=== PATIENT | female | born 1955 | race Caucasian/White ===

== ENCOUNTER 2019-03-03 06:45 | Day surgery (SDC) ==
--- NOTE | 2019-03-03 07:48 | Diag Imaging Result Doc PS360 ---
EXAM: LYMPHOSCINTIGRAPHY W/IMG INDICATION: Malignant neoplasm of unspecified site of right female breast TECHNIQUE: COMPARISON: None. FINDINGS: 540 uCi of technetium 99 Lymphoseek was injected subcutaneously in the quadrant of the patient's known right breast malignancy by Dr. Darci Martin for the purpose of sentinel node localization. Expected axillary aneta activity is noted. IMPRESSION: As above. Electronically signed by Sd Mixon 03/03/2019 7:46 AM
--- NOTE | 2019-03-03 07:48 | EKG Report ---
Test Performed on : 03/03/2019 07:38:38 AM Test Reason : preop Blood Pressure : / mmHG Vent. Rate : 072 BPM Atrial Rate : 072 BPM P-R Int : 160 ms QRS Dur : 084 ms QT Int : 398 ms P-R-T Axes : 061 016 049 degrees QTc Int : 435 ms Normal sinus rhythm. with sinus arrhythmia. Normal ECG No previous ECGs available Confirmed by Byron ALCANTARA, Melvin Caldera ([id number]) on 03/03/2019 1:12:54 PM
[2019-03-03 07:54] LABS: HEMATOCRIT 38.8 % (37.0-47.0); HEMOGLOBIN 12.8 g/dL (12.0-16.0); MCH 30.5 PG (27-31); MCV 92.4 FL (81-99); RBC 4.2 XMIL (4.2-5.4); WBC 7.1 X1000 (4.8-10.8)
[2019-03-03] MEDS ORDERED: PEPCID ONE (07:55)
[2019-03-03] MEDS ORDERED: KEFZOL 1 GM/D5W 1 GM/50 ML IVPB ONE (07:55)
[2019-03-03] MEDS ORDERED: REGLAN ONE (07:55)
[2019-03-03] MEDS ORDERED: LR 1,000 ML ONE (07:55)
[2019-03-03] MEDS ORDERED: VERSED ONE (08:07)
[2019-03-03] MEDS ORDERED: DIPRIVAN 1% ONE (08:08)
[2019-03-03] MEDS ORDERED: FENTANYL ONE (08:08)
[2019-03-03] MEDS ORDERED: METHYLENE BLUE 0.5% ONE (10:09)
[2019-03-03] MEDS ORDERED: SENSORCAINE 0.25%/EPI 1:200,000 ONE (10:09)
[2019-03-03] MEDS: DILAUDID ONE ×2 (12:38→12:43)
[2019-03-03] MEDS ORDERED: ZOFRAN IV PRN (13:09)
[2019-03-03] MEDS ORDERED: MORPHINE IV PRN (13:09)
[2019-03-03] MEDS: NORCO-10 PO PRN ×2 (14:46→22:11)
[2019-03-03] MEDS: LR 1,000 ML IV SCH ×2 (14:46→19:04)
--- NOTE | 2019-03-03 20:43 | OPERATIVE NOTE ---
PROCEDURE DATE: 03/03/2019 PREOPERATIVE DIAGNOSIS: Right breast carcinoma, right upper outer. POSTOPERATIVE DIAGNOSIS: Right breast carcinoma, right upper outer. PROCEDURE PERFORMED: Right mastectomy with sentinel lymph node biopsy and intraoperative mapping. SPECIMENS: 1. Right breast tissue garibay medial. 2. Holden lymph node #1. 3. Nonsentinel lymph node tissue. ESTIMATED BLOOD LOSS: 100 mL. ANESTHESIA: General. INDICATIONS: This is a 64-year-old female who has a right upper outer breast mass biopsy- confirmed invasive carcinoma who has elected to undergo a right mastectomy with sentinel node biopsy. OPERATIVE FINDINGS: There was a single sentinel node noted in the right axilla. It had an ex vivo count of over 5000 and a bed count that fell to less than 10% of this. It did stain blue with methylene blue injection. There is a right upper outer breast mass just above and lateral to the nipple areolar complex with grossly negative margins. DRAINS: Joey drain was placed in the mastectomy flap and into the axilla. OPERATIVE NOTE: Risks, benefits, and alternatives were discussed with the patient. She consented to the procedure. Seen preoperatively and surgical site was confirmed. She was injected with the technetium marker by our Nuclear Medicine colleagues. She was then taken to the operating room, placed in supine position, and general anesthesia induced. Her right neck, chest, breast, and axilla were prepped with Betadine and draped in usual fashion. After time-out an elliptical incision was made around the nipple areolar complex oriented toward the axilla from an inferior medial to cephalad lateral orientation. We entered the avascular plane of the breast, medial to the sternum, cephalad to the clavipectoral fascia, the inferior rectus, and laterally to the latissimus. Prior to doing this, we did enter the axilla under the guidance of the gamma probe, and prior to making skin incision we did inject methylene blue in the subareolar location. Upon entering the axilla, we identified a blue lymphatic and follow this to a normal-appearing right node that did have avidity noted with the gamma probe. There was quite a lot of scatter from her injection site that made the blue dye more useful. Ex vivo count was elevated consistent with a sentinel node. Bed count fell to less than 10%. There was some surrounding nonsentinel tissue that was sent separately. Frozen section was negative from metastatic malignancy. As such, we did not pursue axillary dissection. We placed a marking stitch medially. A Joey drain was placed through a separate stab incision in the dermis and after Valsalva we noted hemostasis and irrigated the wound. The dermis was closed with 3-0 Vicryl. Skin was closed with 4-0 Monocryl. Dermabond was applied. Counts correct. She will be transferred to recovery. I spoke with family. cc: Fidencio Martin MD
[2019-03-03] MEDS: PERIDEX MT SCH (22:11)
[2019-03-03 22:24] LABS: URINE SOURCE CLEAN CATCH
[2019-03-03 22:58] LABS: BILIRUBIN URINE NEGATIVE (NEGATIVE); BLOOD URINE NEGATIVE (NEGATIVE); COLOR STRAW; GLUCOSE URINE NEGATIVE (NEGATIVE); KETONE URINE NEGATIVE (NEGATIVE); LEUKOCYTES URINE NEGATIVE (NEGATIVE); NITRITE URINE NEGATIVE (NEGATIVE); PH URINE 6.5; PROTEIN URINE NEGATIVE (NEGATIVE); SP GRAVITY URINE 1.017; TURBIDITY URINE CLEAR (CLEAR); UR EPITHELIAL CELLS <10 /HPF (<10); URINE BACTERIA NEGATIVE /HPF; URINE RBC <10 /HPF (<10); URINE WBC <10 /HPF (<10); UROBILINOGEN URINE NORMAL (NORMAL)
[2019-03-04] MEDS: NORCO-10 PO PRN (02:43)
[2019-03-04] MEDS ORDERED: PRILOSEC PO SCH (07:00)
[2019-03-04 07:29] LABS: BASO% 0.4 % (0.0-0.8); EOS% 1.4 % (0.0-10.0); HEMATOCRIT 32.5 % (37.0-47.0); HEMOGLOBIN 10.5 g/dL (12.0-16.0); LYMPH% 28.4 % (20.5-51.1); MCH 30.2 PG (27-31); MCHC 32.3 g/dL (33-37); MCV 93.4 FL (81-99); MONO% 7.5 % (1.7-9.3); MPV 10.4 FL (7.4-10.4); NEUT# 4.32 X1000 (1.4-6.5); NEUT% 62.3 % (42.2-75.2); PLT 269 X1000 (130-400); RBC 3.48 XMIL (4.2-5.4); RDW 13.9 % (11.5-14.5); WBC 6.94 X1000 (4.8-10.8)
[2019-03-04 07:30] LABS: BASO# 0.03 X1000 (0.0-0.2); LYMPH# 1.97 X1000 (1.2-3.4); MONO# 0.52 X1000 (0.11-0.59)
[2019-03-04 07:54] LABS: AGAP 12; BUN 9 mg/dL (8-22); CALCIUM 8.4 mg/dL (8.8-10.2); CHLORIDE 106 mmol/L (98-107); COSMO 282; CREATININE 0.6 mg/dL (0.5-0.9); ESTIMATED GFR > 60; GLUCOSE 94 mg/dL (70-104); POTASSIUM 3.8 mmol/L (3.5-5.1); SODIUM 142 mmol/L (136-145); TCO2 24 mmol/L (25-35)
[2019-03-04] MEDS: PERIDEX MT SCH (08:31)
[2019-03-04 12:20] VITALS: BP 126/49
--- NOTE | 2019-03-04 14:51 | DISCHARGE SUMMARY ---
ADMISSION DATE: 03/03/2019 DISCHARGE DATE: 03/04/2019 PREOPERATIVE DIAGNOSIS: Right breast carcinomatosis. POSTOPERATIVE DIAGNOSIS: Right breast carcinomatosis. PROCEDURE PERFORMED: Right total mastectomy and sentinel node biopsy. HISTORY OF PRESENT ILLNESS: A 64-year-old female with a right upper outer breast mass. Biopsy confirmed carcinoma and elected to undergo mastectomy. HOSPITAL COURSE: Patient was seen on the day of her surgery and cleared by anesthesia for above procedure. For details, please see dictated operative note. Postoperatively, drain output was appropriate. Her wounds remained flat. Postop day 1, her hematocrit was appropriate postoperative at 32. Her pain was controlled. She is felt safe for discharge home. Follow-up appointment is with me in 1 week. Sooner if her drain output decreased less than 30. Discharge instructions were given in written and verbal format. DISCHARGE MEDICATIONS: [place] and [facility] for pain. DISPOSITION: Home to self-care. cc: Fidencio Martin MD
== END 2019-03-04 15:44 | disposition home or self-care (01) ==
LOC: 4N 06:45 → OPS 06:45 → PAT 06:45 → OPS 03-04 15:44
PROVIDERS: ATTEND Surgery